=== PATIENT | male | born 1990 | race African-American/Black ===

== ENCOUNTER 2017-03-11 01:22 | Emergency (ER) | payer OTHER ==
[~2017-03-11] VITALS: Ht 180.3 cm; Wt 86.1 kg
[2017-03-11 03:20] VITALS: BP 130/72
== END 2017-03-11 03:29 | disposition home or self-care (01) ==
LOC: EME 01:22
DX: K02.53 Dental caries on pit and fissure surface penetrating into pulp (principal); K08.89 Other specified disorders of teeth and supporting structures; F17.200 Nicotine dependence, unspecified, uncomplicated
CPT/HCPCS: 99281; 99284

== ENCOUNTER 2017-03-22 10:39 | Emergency (ER) | payer OTHER ==
[~2017-03-22] VITALS: Ht 180.3 cm; Wt 87.5 kg
[2017-03-22] MEDS ORDERED: LIDODERM 5% P1 PATCH TD (11:58)
[2017-03-22] MEDS ORDERED: MOUTH SORE15 ML MM (11:58)
[2017-03-22] MEDS ORDERED: VALIUM2 MG PO (11:58)
[2017-03-22] MEDS ORDERED: NAPROSYN500 MG PO (11:58)
[2017-03-22 12:24] VITALS: BP 129/72
== END 2017-03-22 12:25 | disposition home or self-care (01) ==
LOC: EME 10:39
DX: L23.9 Allergic contact dermatitis, unspecified cause (principal); M62.838 Other muscle spasm; B08.4 Enteroviral vesicular stomatitis with exanthem
CPT/HCPCS: 99281; 99283; J1100